=== PATIENT | female | born 1995 | race African-American/Black ===

== ENCOUNTER 2020-06-23 14:30 | Emergency (ER) | payer SELFPAY ==
[~2020-06-23] VITALS: Ht 170.2 cm; Wt 63.0 kg
[2020-06-23] MEDS ORDERED: KETOROLAC 30MG/ML VIAL IM ONE (15:15)
[2020-06-23] MEDS ORDERED: IBUPROFEN 600MG TABLET PO ONE (15:15)
[2020-06-23 16:51] VITALS: BP 118/79
== END 2020-06-23 16:52 | disposition home or self-care (01) ==
LOC: ER 14:30
DX: S40.012A Contusion of left shoulder, initial encounter (principal); S50.02XA Contusion of left elbow, initial encounter; V49.49XA Driver injured in collision with other motor vehicles in traffic accident, initial encounter; Y93.89 Activity, other specified; Y92.89 Other specified places as the place of occurrence of the external cause; Y99.8 Other external cause status
CPT/HCPCS: 73030; 73080; 73110; 99284; J1885